=== PATIENT | female | born 1985 | race Caucasian/White ===

== ENCOUNTER 2024-01-06 11:38 | Emergency (ER) | payer MEDICAID, OTHER ==
[~2024-01-06] VITALS: Ht 167.6 cm; Wt 68.0 kg
[2024-01-06 11:41] VITALS: O2SAT 95
[2024-01-06 12:26] LABS: BASOPHILS % 0.7 % (0.0-2.0); EOSINOPHILS % 0.3 % (0.0-5.0); HEMATOCRIT. 39.7 % (36.0-48.0); LYMPHOCYTES % 16.1 % (20.0-50.0); MEAN CORPUSCULAR HEMOGLOBIN 30.2 pg (28.0-32.0); MEAN CORPUSCULAR HGB CONC 32.7 g/dL (31.0-37.0); MEAN CORPUSCULAR VOLUME 92.4 fL (81.0-99.0); MEAN PLATELET VOLUME 7.3 fl (7.4-10.4); MONOCYTES % 9.6 % (2.0-8.0); NEUTROPHILS % 73.3 % (40.0-76.0); PLATELET 288 x1000/uL (130-400); RED CELL DISTRIBUTION WIDTH 18.5 % (11.6-14.6); WHITE BLOOD COUNT 7.1 x1000/uL (4.5-11.0)
[2024-01-06 12:36] LABS: CHLORIDE 99 mEq/L (98-107); POTASSIUM 3.1 mEq/L (3.5-5.1); SODIUM 134 mEq/L (136-145)
[2024-01-06 12:42] LABS: CREATININE 1.1 mg/dL (0.6-1.0); GLUCOSE 116 mg/dL (70-105); UREA NITROGEN BLOOD 13 mg/dL (9-23)
[2024-01-06 12:51] LABS: CARBON DIOXIDE 27 mEq/L (21-32)
[2024-01-06] MEDS: POTASSIUM CHLORIDE 20MEQ/PACKET PO ONE (14:03)
[2024-01-06 14:54] LABS: ETHANOL BLOOD < 10 mg/dL (<10)
[2024-01-06] MEDS: LORAZEPAM 2MG/ML INJ IM ONE (15:22)
[2024-01-06 16:21] LABS: HCG SCREEN NEGATIVE
[2024-01-06 16:23] LABS: POTASSIUM 3.4 mEq/L (3.5-5.1)
[2024-01-06 16:24] LABS: CALCIUM 9.5 mg/dL (8.7-10.4)
[2024-01-06 16:29] LABS: CREATININE 1.1 mg/dL (0.6-1.0)
[2024-01-07] MEDS: POTASSIUM CHLORIDE 20MEQ/PACKET PO NR (02:11)
[2024-01-07 11:30] LABS: CLARITY URINE CLOUDY (CLEAR); COLOR URINE DARK YELLOW (YELLOW); GLUCOSE URINE NEGATIVE (NEGATIVE); KETONES URINE 2+ (NEGATIVE); LEUKOCYTE ESTERASE URINE 3+ (NEGATIVE); NITRITE URINE NEGATIVE (NEGATIVE); OCCULT BLOOD URINE NEGATIVE (NEGATIVE); PH URINE 6.5 (4.5-8.0); PROTEIN URINE 2+ (NEGATIVE); SPECIFIC GRAVITY URINE 1.023 (1.005-1.030)
[2024-01-07 11:48] LABS: WBC URINE 25-50 /hpf (0-2)
[2024-01-07 11:49] LABS: BACTERIA URINE 3+; SQUAMOUS EPITHELIAL CELL URINE 1+ /lpf (RARE/1+); YEAST URINE NONE SEEN
[2024-01-07 12:03] LABS: *AMPHETAMINES SCREEN URINE NEGATIVE (NEGATIVE)
[2024-01-07 12:04] LABS: *BARBITURATES SCREEN URINE NEGATIVE (NEGATIVE); *BENZODIAZEPINES SCREEN URINE NEGATIVE (NEGATIVE); *COCAINE SCREEN URINE NEGATIVE (NEGATIVE); CANNABINOID URINE SCREEN PRESUMPTIVE POSITIVE (NEGATIVE); ECSTASY MDMA SCREEN URINE NEGATIVE (NEGATIVE); METHADONE URINE SCREEN NEGATIVE (NEGATIVE); OPIATES URINE SCREEN NEGATIVE (NEGATIVE); PHENCYCLIDINE URINE SCREEN NEGATIVE (NEGATIVE)
[2024-01-07 12:33] VITALS: BP 132/80; PULSE 70; RESP 18; TEMP 36.72516; O2SAT 96
== END 2024-01-07 12:42 | disposition home or self-care (01) ==
LOC: ER 11:38
DX: R46.2 Strange and inexplicable behavior (principal); Z20.822 Contact with and (suspected) exposure to COVID-19
CPT/HCPCS: 80305; 80048; 81003; 80320; 84703; 85025; 36415; 96372; 99285; 87426; 87086; J2060; G0480

== ENCOUNTER 2024-01-12 16:42 | Emergency (ER) | payer MEDICAID ==
[~2024-01-12] VITALS: Ht 160 cm; Wt 68.0 kg
[2024-01-12 16:49] VITALS: BP 116/75; PULSE 72; RESP 18; TEMP 98.3; O2SAT 100
== END 2024-01-12 17:32 | disposition left against medical advice (07) ==
LOC: ER 16:42
DX: F10.129 Alcohol abuse with intoxication, unspecified (principal); Z53.21 Procedure and treatment not carried out due to patient leaving prior to being seen by health care provider; Y90.9 Presence of alcohol in blood, level not specified

== ENCOUNTER 2024-02-02 11:31 | Inpatient (IN) | payer MEDICAID ==
[~2024-02-02] VITALS: Ht 167.6 cm; Wt 77.6 kg
[2024-02-02 11:34] VITALS: O2SAT 99
[2024-02-02] MEDS: FOLIC ACID 1 MG, THIAMINE HCL 100 MG, MVI, ADULT NO.1 10 ML in DEXTROSE 5% WATER 1,000 ML IV ONE (11:45)
[2024-02-02] MEDS: LORAZEPAM 2MG/ML INJ IV ONE (12:07)
[2024-02-02] MEDS: CHLORDIAZEPOXIDE 25MG CAPSULE PO ONE (12:07)
[2024-02-02 12:08] LABS: BASOPHILS % 1.4 % (0.0-2.0); EOSINOPHILS % 0.8 % (0.0-5.0); HEMATOCRIT. 43.3 % (36.0-48.0); HEMOGLOBIN. 14.5 g/dL (12.0-16.0); LYMPHOCYTES % 25.5 % (20.0-50.0); MEAN CORPUSCULAR HEMOGLOBIN 31.1 pg (28.0-32.0); MEAN CORPUSCULAR HGB CONC 33.4 g/dL (31.0-37.0); MEAN CORPUSCULAR VOLUME 93.4 fL (81.0-99.0); MEAN PLATELET VOLUME 7.1 fl (7.4-10.4); MONOCYTES % 2.8 % (2.0-8.0); NEUTROPHILS % 69.5 % (40.0-76.0); PLATELET 164 x1000/uL (130-400); RED BLOOD CELL COUNT 4.64 mill/uL (4.2-5.4); RED CELL DISTRIBUTION WIDTH 19.2 % (11.6-14.6); WHITE BLOOD COUNT 6.1 x1000/uL (4.5-11.0)
[2024-02-02 12:20] LABS: CALCIUM 8.9 mg/dL (8.7-10.4)
[2024-02-02 12:24] LABS: CREATININE 1.2 mg/dL (0.6-1.0)
[2024-02-02 14:49] LABS: CLARITY URINE CLEAR (CLEAR); COLOR URINE YELLOW (YELLOW); GLUCOSE URINE NEGATIVE (NEGATIVE); KETONES URINE 3+ (NEGATIVE); LEUKOCYTE ESTERASE URINE 1+ (NEGATIVE); NITRITE URINE NEGATIVE (NEGATIVE); OCCULT BLOOD URINE NEGATIVE (NEGATIVE); PH URINE 6.5 (4.5-8.0); PROTEIN URINE 3+ (NEGATIVE); SPECIFIC GRAVITY URINE 1.017 (1.005-1.030)
[2024-02-02 15:10] LABS: *AMPHETAMINES SCREEN URINE NEGATIVE (NEGATIVE); *BARBITURATES SCREEN URINE NEGATIVE (NEGATIVE); *BENZODIAZEPINES SCREEN URINE NEGATIVE (NEGATIVE); *COCAINE SCREEN URINE NEGATIVE (NEGATIVE); CANNABINOID URINE SCREEN NEGATIVE (NEGATIVE); ECSTASY MDMA SCREEN URINE NEGATIVE (NEGATIVE); METHADONE URINE SCREEN NEGATIVE (NEGATIVE); OPIATES URINE SCREEN NEGATIVE (NEGATIVE); PHENCYCLIDINE URINE SCREEN NEGATIVE (NEGATIVE)
[2024-02-02 15:17] LABS: FINE GRANULAR CASTS URINE 0-5 /lpf
[2024-02-02 15:18] LABS: MUCUS URINE 1+ /lpf (< = 2+)
[2024-02-02 15:21] LABS: RBC URINE 0-2 /hpf (0-2); SQUAMOUS EPITHELIAL CELL URINE 2+ /lpf (RARE/1+)
[2024-02-02 15:22] LABS: BACTERIA URINE TRACE; TRICHOMONAS URINE RARE
[2024-02-02] MEDS ORDERED: LORAZEPAM 2MG/ML INJ IV PRN (15:45)
[2024-02-02] MEDS ORDERED: ONDANSETRON HCL 4MG/2ML INJ IV PRN (15:45)
[2024-02-02] MEDS ORDERED: IPRATROPIUM/ALBUTEROL 0.5-3(2.5)MG/3ML NEB HHN PRN (15:45)
[2024-02-02] MEDS ORDERED: CLONIDINE 0.1MG TABLET PO PRN (15:45)
[2024-02-02] MEDS ORDERED: DOCUSATE SODIUM 100MG CAPSULE PO PRN (15:45)
[2024-02-02] MEDS ORDERED: ACETAMINOPHEN 325MG TABLET PO PRN (15:45)
[2024-02-02] MEDS: CEFTRIAXONE 1GM/50ML 50 ML IV SCH (18:28)
[2024-02-02 18:40] LABS: ALANINE AMINOTRANSFERASE 75 IU/L (10-49); ALBUMIN 4.7 g/dL (3.2-4.8); ASPARTATE AMINOTRANSFERASE 101 IU/L (<34); BILIRUBIN DIRECT 0.3 mg/dL (<=3.0); PROTEIN TOTAL 7.8 g/dL (6.0-8.3)
[2024-02-02 18:42] LABS: THYROID STIMULATING HORMONE > 150.00 uIU/mL (0.55-4.78)
[2024-02-02 18:48] LABS: T4 FREE < 0.10 ng/dL (0.89-1.76)
[2024-02-02] MEDS ORDERED: FOLIC ACID 1 MG, THIAMINE HCL 100 MG, MVI, ADULT NO.1 10 ML in DEXTROSE 5% WATER 1,000 ML IV ONE (20:00)
[2024-02-02] MEDS: DEXT 5%/0.45% NACL 1000ML 1,000 ML IV SCH (21:11)
[2024-02-02] MEDS: CHLORDIAZEPOXIDE 25MG CAPSULE PO SCH (22:07)
[2024-02-03] VITALS (7 sets, daily range): BP systolic 101–122; BP diastolic 59–72; PULSE 71–90; RESP 17–20; TEMP 36.28068–36.78072; O2SAT 96–99
[2024-02-03 06:36] LABS: BASOPHILS % 0.7 % (0.0-2.0); EOSINOPHILS % 2.3 % (0.0-5.0); HEMATOCRIT. 37.2 % (36.0-48.0); HEMOGLOBIN. 12.4 g/dL (12.0-16.0); LYMPHOCYTES % 27.4 % (20.0-50.0); MEAN CORPUSCULAR HEMOGLOBIN 30.9 pg (28.0-32.0); MEAN CORPUSCULAR HGB CONC 33.3 g/dL (31.0-37.0); MEAN CORPUSCULAR VOLUME 92.7 fL (81.0-99.0); MEAN PLATELET VOLUME 7.4 fl (7.4-10.4); MONOCYTES % 5.7 % (2.0-8.0); NEUTROPHILS % 63.9 % (40.0-76.0); PLATELET 118 x1000/uL (130-400); RED BLOOD CELL COUNT 4.01 mill/uL (4.2-5.4); RED CELL DISTRIBUTION WIDTH 19.5 % (11.6-14.6); WHITE BLOOD COUNT 5.3 x1000/uL (4.5-11.0)
[2024-02-03 06:42] LABS: PROTHROMBIN TIME 11.3 sec (9.6-11.0)
[2024-02-03 06:53] LABS: CARBON DIOXIDE 29 mEq/L (21-32); CHLORIDE 95 mEq/L (98-107); POTASSIUM 3.5 mEq/L (3.5-5.1); SODIUM 134 mEq/L (136-145)
[2024-02-03 06:54] LABS: CALCIUM 9.4 mg/dL (8.7-10.4)
[2024-02-03 06:56] LABS: UREA NITROGEN BLOOD 13 mg/dL (9-23)
[2024-02-03 06:58] LABS: ALBUMIN 4.6 g/dL (3.2-4.8)
[2024-02-03 06:59] LABS: ALANINE AMINOTRANSFERASE 67 IU/L (10-49); CREATININE 1.2 mg/dL (0.6-1.0); GLUCOSE 140 mg/dL (70-105)
[2024-02-03 07:01] LABS: ASPARTATE AMINOTRANSFERASE 88 IU/L (<34); BILIRUBIN DIRECT 0.4 mg/dL (<=3.0); BILIRUBIN TOTAL 1.7 mg/dL (0.1-1.0); PHOSPHORUS 1.6 mg/dL (2.5-4.9); PROTEIN TOTAL 7.5 g/dL (6.0-8.3)
[2024-02-03] MEDS: FOLIC ACID 1 MG, THIAMINE HCL 100 MG, MVI, ADULT NO.1 10 ML in DEXTROSE 5% WATER 1,000 ML IV ONE (10:34)
[2024-02-03] MEDS: CEFTRIAXONE 1GM/50ML 50 ML IV SCH (23:10)
[2024-02-04] VITALS: BP 111/63; PULSE 72; RESP 17; TEMP 36.6696; O2SAT 99
[2024-02-04 04:00] VITALS: BP 107/55; PULSE 90; RESP 18; TEMP 36.6696; O2SAT 99
[2024-02-04] MEDS: ACETAMINOPHEN 325MG TABLET PO PRN (11:39)
[2024-02-04 12:00] VITALS: BP 99/67; PULSE 59; RESP 18; TEMP 36.3918; O2SAT 100
[2024-02-04 16:00] VITALS: BP 101/72; PULSE 66; RESP 18; TEMP 36.55848; O2SAT 100
[2024-02-04] MEDS: LEVOTHYROXINE SODIUM 150MCG TABLET PO SCH (16:32)
[2024-02-04 17:09] VITALS: BP 101/72; PULSE 66; RESP 66; TEMP 36.55848; O2SAT 100
[2024-02-04 20:00] VITALS: BP 98/64; PULSE 58; RESP 19; TEMP 36.16956; O2SAT 100
[2024-02-05 00:47] VITALS: BP 101/59; PULSE 58; RESP 16; TEMP 36.16956; O2SAT 100
[2024-02-05 04:00] VITALS: BP 101/64; PULSE 66; RESP 19; TEMP 35.66952
[2024-02-05 08:00] VITALS: BP 94/63; PULSE 67; RESP 20; TEMP 36.114; O2SAT 98
[2024-02-05 12:00] VITALS: BP 95/69; PULSE 61; RESP 18; TEMP 36.28068; O2SAT 100
== END 2024-02-05 17:53 | disposition left against medical advice (07) | DRG 463 ==
LOC: ER 11:31 → 5WST 13:13 → EDBEDREQ 13:14 → EDBEDREQTM 13:14 → 5WST 17:10 → 7WST 22:20
PROVIDERS: ADMIT Internal Medicine; ATTEND Internal Medicine
DX: N39.0 Urinary tract infection, site not specified (principal); N17.9 Acute kidney failure, unspecified; E03.9 Hypothyroidism, unspecified; Z53.29 Procedure and treatment not carried out because of patient's decision for other reasons; Z59.00 Homelessness unspecified; Z87.891 Personal history of nicotine dependence; Z91.148 Patient's other noncompliance with medication regimen for other reason; F10.129 Alcohol abuse with intoxication, unspecified; F11.90 Opioid use, unspecified, uncomplicated
CPT/HCPCS: 36415; 80048; 80076; 80305; 80320; 81003; 83735; 83880; 84100; 84439; 84443; 84480; 85025; 85379; 99285; J0696; J2060; J3411; J3490; J7070; G0480

== ENCOUNTER 2024-12-21 15:38 | Emergency (ER) | payer MEDICAID ==
[~2024-12-21] VITALS: Ht 167.6 cm; Wt 52.0 kg
[2024-12-21 15:44] VITALS: O2SAT 98
[2024-12-21] MEDS: ONDANSETRON HCL 4MG/2ML INJ IV NR (16:45)
[2024-12-21] MEDS ORDERED: ONDANSETRON HCL 4MG/2ML INJ IV ONE (16:45)
[2024-12-21] MEDS: SODIUM CHLORIDE 0.9% 1,000 ML IV ONE (16:45)
[2024-12-21] MEDS ORDERED: MAGNESIUM/ALUMINUM HYDROXIDE/SIMETHICONE 30ML UDC PO ONE (16:45)
[2024-12-21] MEDS: MAGNESIUM/ALUMINUM HYDROXIDE/SIMETHICONE 30ML UDC PO NR (16:45)
[2024-12-21 18:25] LABS: BASOPHILS % 3.7 % (0.0-2.0); EOSINOPHILS % 0.0 % (0.0-5.0); HEMATOCRIT. 41.1 % (36.0-48.0); HEMOGLOBIN. 13.5 g/dL (12.0-16.0); LYMPHOCYTES % 28.7 % (20.0-50.0); MEAN PLATELET VOLUME 8.3 fl (7.4-10.4); MONOCYTES % 6.7 % (2.0-8.0); NEUTROPHILS % 60.9 % (40.0-76.0); PLATELET 98 x1000/uL (130-400); RED BLOOD CELL COUNT 4.53 mill/uL (4.2-5.4); RED CELL DISTRIBUTION WIDTH 21.8 % (11.6-14.6)
[2024-12-21 18:37] LABS: TROPONIN I HIGH SENSITIVITY 24 ng/L (3.0-34)
[2024-12-21 18:39] LABS: CREATININE 0.7 mg/dL (0.6-1.0); PROTEIN TOTAL 8.5 g/dL (6.0-8.3); UREA NITROGEN BLOOD 13 mg/dL (9-23)
[2024-12-21 18:41] LABS: ASPARTATE AMINOTRANSFERASE 361 IU/L (<34); BILIRUBIN DIRECT 0.8 mg/dL (<=3.0); BILIRUBIN TOTAL 1.5 mg/dL (0.1-1.0); HCG SCREEN NEGATIVE
[2024-12-21 18:49] LABS: ETHANOL BLOOD 323 mg/dL (<10)
[2024-12-21 19:26] VITALS: BP 129/89; PULSE 75; RESP 10; TEMP 37; O2SAT 97
== END 2024-12-21 19:58 | disposition home or self-care (01) ==
LOC: ER 15:38
DX: R10.13 Epigastric pain (principal); Z86.39 Personal history of other endocrine, nutritional and metabolic disease
CPT/HCPCS: 80076; 80048; 80320; 84703; 83690; 83735; 85025; 84484; 36415; 96361; 96374; 99284; J2405; J7030; G0480

== ENCOUNTER 2024-12-23 09:57 | Emergency (ER) | payer MEDICAID ==
[~2024-12-23] VITALS: Ht 162.6 cm; Wt 64.0 kg
[2024-12-23 10:00] VITALS: O2SAT 98
[2024-12-23] MEDS: FAMOTIDINE 20MG TABLET PO ONE (10:36)
[2024-12-23] MEDS: ONDANSETRON 4MG ODT PO ONE (10:37)
[2024-12-23] MEDS: ACETAMINOPHEN 325MG TABLET PO ONE (10:37)
[2024-12-23 10:52] LABS: BASOPHILS % 3.2 % (0.0-2.0); EOSINOPHILS % 0.0 % (0.0-5.0); HEMATOCRIT. 41.4 % (36.0-48.0); HEMOGLOBIN. 13.6 g/dL (12.0-16.0); LYMPHOCYTES % 37.8 % (20.0-50.0); MEAN PLATELET VOLUME 8.4 fl (7.4-10.4); MONOCYTES % 4.6 % (2.0-8.0); NEUTROPHILS % 54.4 % (40.0-76.0); PLATELET 95 x1000/uL (130-400); RED BLOOD CELL COUNT 4.59 mill/uL (4.2-5.4); RED CELL DISTRIBUTION WIDTH 22.1 % (11.6-14.6)
[2024-12-23 10:53] LABS: ADD RBC MORPHOLOGY YES
[2024-12-23 10:56] LABS: CLARITY URINE CLOUDY (CLEAR); COLOR URINE DARK YELLOW (YELLOW); GLUCOSE URINE NEGATIVE (NEGATIVE); KETONES URINE 4+ (NEGATIVE); LEUKOCYTE ESTERASE URINE TRACE (NEGATIVE); NITRITE URINE NEGATIVE (NEGATIVE); OCCULT BLOOD URINE 2+ (NEGATIVE); PH URINE 6.0 (4.5-8.0); PROTEIN URINE 3+ (NEGATIVE); SPECIFIC GRAVITY URINE 1.018 (1.005-1.030); UROBILINOGEN URINE 1.0 E.U./dL (0.2-1.0)
[2024-12-23 11:06] LABS: UREA NITROGEN BLOOD 14 mg/dL (9-23)
[2024-12-23 11:07] LABS: CREATININE 0.7 mg/dL (0.6-1.0)
[2024-12-23 11:08] LABS: ETHANOL BLOOD 287 mg/dL (<10); HCG SCREEN NEGATIVE
[2024-12-23 11:09] LABS: ASPARTATE AMINOTRANSFERASE 430 IU/L (<34); BILIRUBIN DIRECT 1.3 mg/dL (<=3.0); BILIRUBIN TOTAL 2.5 mg/dL (0.1-1.0); PROTEIN TOTAL 8.6 g/dL (6.0-8.3)
[2024-12-23 11:12] LABS: SQUAMOUS EPITHELIAL CELL URINE 3+ /lpf (RARE/1+)
[2024-12-23 11:13] LABS: BACTERIA URINE 3+; WBC URINE 0-2 /hpf (0-2)
[2024-12-23 11:16] LABS: TRICHOMONAS URINE FEW
[2024-12-23 11:17] LABS: RBC URINE 0-2 /hpf (0-2)
[2024-12-23 11:23] LABS: *AMPHETAMINES SCREEN URINE NEGATIVE (NEGATIVE); *BARBITURATES SCREEN URINE NEGATIVE (NEGATIVE); *BENZODIAZEPINES SCREEN URINE NEGATIVE (NEGATIVE); *COCAINE SCREEN URINE NEGATIVE (NEGATIVE)
[2024-12-23 11:24] LABS: CANNABINOID URINE SCREEN NEGATIVE (NEGATIVE); ECSTASY MDMA SCREEN URINE NEGATIVE (NEGATIVE); METHADONE URINE SCREEN NEGATIVE (NEGATIVE); OPIATES URINE SCREEN NEGATIVE (NEGATIVE); PHENCYCLIDINE URINE SCREEN NEGATIVE (NEGATIVE)
[2024-12-23 11:41] LABS: PLATELET ESTIMATE DECREASED
[2024-12-23] MEDS: KETOROLAC 15MG/ML VIAL IM ONE (15:39)
[2024-12-23] MEDS: NITROFURANTOIN 100MG M/M CAPSULE PO SCH (22:25)
[2024-12-23] MEDS: METRONIDAZOLE 500MG TABLET PO SCH (22:50)
[2024-12-23] MEDS: CHLORDIAZEPOXIDE 25MG CAPSULE PO ONE (22:50)
[2024-12-24] MEDS: ACETAMINOPHEN 325MG TABLET PO ONE (12:04)
[2024-12-24] MEDS: CHLORDIAZEPOXIDE 25MG CAPSULE PO PRN (22:00)
[2024-12-25 11:01] VITALS: BP 122/79; PULSE 78; RESP 16; TEMP 36.9; O2SAT 98
== END 2024-12-25 11:15 | disposition home or self-care (01) ==
LOC: ER 10:18
DX: R45.851 Suicidal ideations (principal); R10.13 Epigastric pain; F10.10 Alcohol abuse, uncomplicated; N30.00 Acute cystitis without hematuria; R51.9 Headache, unspecified; E03.9 Hypothyroidism, unspecified; Z59.01 Sheltered homelessness; Z79.899 Other long term (current) drug therapy; Z20.822 Contact with and (suspected) exposure to COVID-19; Z91.51 Personal history of suicidal behavior; Y90.9 Presence of alcohol in blood, level not specified
CPT/HCPCS: 80076; 80305; 80048; 81003; 80307; 80329; 80320; 82962; 84703; 83690; 85025; 36415; 70450; 76705; 96372; 99285; 87426; Q0162; J1885; Z7610; G0480